=== PATIENT | female | born 2000 | race Caucasian/White ===

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

== ENCOUNTER 2020-04-24 04:35 | Inpatient (IN) ==
[2020-04-24 05:01] LABS: Hematocrit 28.2 % (37.0-47.0); Hemoglobin 8.2 gm/dL (12.5-16.0); Mean Cell Volume 73.4 fl (78-100); Mean Corpuscular Hemoglobin 21.4 pg (27-31); Mean Corpuscular Hgb Conc 29.1 g/dl (32-36); NRBC# 0.1 k/mm3 (0-1); Neutrophil # 9.9 K/mm3 (1.3-6.0); Neutrophil % 68.5 % (42-75.0); Platelet Count 140 K/mm3 (150-450); Red Blood Count 3.84 M/mm3 (4.2-5.4); Red Cell Distribution Width 16.2 % (11.5-14.0); White Blood Count 14.5 K/mm3 (4.0-10.5)
[2020-04-24] MEDS: RINGER'S SOLUTION,LACTATED 1,000 ML IV PRN ×2 (05:25→06:29)
[2020-04-24] MEDS ORDERED: ONDANSETRON HCL/PF 2 MG/ML VIAL ONE (06:47)
[2020-04-24] MEDS ORDERED: MIDAZOLAM HCL/PF 5 MG/ML VIAL ONE (06:47)
[2020-04-24] MEDS ORDERED: fentaNYL CITRATE/PF 50 MCG/ML AMPUL ONE (06:47)
[2020-04-24] MEDS ORDERED: ceFAZolin SODIUM 1 GM VIAL ONE (06:48)
[2020-04-24] MEDS ORDERED: BUPIVACAINE HCL 50 ML VIAL IJ ONE (06:48)
[2020-04-24] MEDS ORDERED: Oxytocin/Ringers Lactate 20 UNITS/1,000 ML BAG IV ONE (06:49)
[2020-04-24] MEDS ORDERED: HYDROmorphone HCL 2 MG/ML VIAL IV PRN (06:59)
[2020-04-24] MEDS ORDERED: ONDANSETRON HCL/PF 2 MG/ML VIAL IV PRN ×2 (06:59→09:41)
[2020-04-24] MEDS ORDERED: NALOXONE HCL 0.4 MG/ML VIAL IV PRN (06:59)
[2020-04-24] MEDS ORDERED: PROCHLORPERAZINE EDISYLATE 5 MG/ML VIAL IV PRN (06:59)
[2020-04-24] MEDS ORDERED: diphenhydrAMINE HCL 50 MG/ML VIAL IV PRN (06:59)
--- NOTE | 2020-04-24 07:02 | ANES ---
Anesthesia Pre Procedure Eval HOME MEDICATIONS prenat.vits,conner,iwn-kxrb-svwcl 1 tab PO DAILY 09/08/19 [Last Taken 04/23/20] aspirin 81 mg tablet,delayed release 81 mg PO DAILY 01/05/20 [Last Taken 04/23/20] docusate sodium 100 mg capsule 100 mg PO DAILY PRN 01/05/20 [Last Taken 04/23/20] ferrous sulfate 325 mg (65 mg iron) tablet 325 mg PO DAILY 04/20/20 [Last Taken 04/23/20] Allergies/Adverse Reactions: Allergies Allergy/AdvReac Type Severity Reaction Status Date / Time No Known Allergies Allergy Verified 04/20/20 09:07 - Planned Procedure Planned Procedure: Primary Section Medication List Reviewed:: Yes Allergies Verified: Yes Medical History (Last Updated 04/24/20 @ 07:01 by Nixon Alves CRNA) Major depression (Chronic) Encounter for Nexplanon removal (Acute) Vaginal delivery (Acute) Obstructive uropathy (Acute) Metformin overdose (Acute) Intentional drug overdose (Acute) Abdominal pain (Acute) Constipation (Acute) Sore throat (Acute) secondary to sinusitis salt water gargle , Tylenol prn pain Sinusitis (Acute) salt water nasal spray Irritable bowel syndrome (IBS) (Suspected) history consistent with IBS, increased fiber, keep diary of symptoms ,follow up with usual doctor Exposure to toxic gas (Acute) Thrombocytopenia affecting Anxiety Borderline personality disorder Depression Anemia Suicidal ideations Suicide attempt by drug ingestion Surgical History (Last Reviewed 04/24/20 @ 07:00 by Nixon Alves CRNA) No history of previous surgery Family History (Last Reviewed 04/24/20 @ 07:00 by Nixon Alves CRNA) Brother Anxiety Depression Oppositional defiant disorder of childhood or adolescence Nonverbal learning disorder Mother Diabetes Fibromyalgia Father Alive and well - Airway/Neck/Teeth Within Normal Limits:: Yes Teeth Condition: intact Mallampatti Score: 2 Thyromental (T-M) distance: > 6 cm Mandibulo Hyoid distance: > 3 cm - Respiratory Respiratory Physical: lungs clear - Cardiovascular Tolerate Activity: Good Heart Sounds: S1 & S2, Regular - Gastrointestinal NPO since: mn - Anesthesia Assessment and Plan ASA Class: PS, II Anesthesia Type Plan: Block - Bilateral TAP blocks for postop analgesia, Spinal
--- NOTE | 2020-04-24 08:45 | OR ---
Operative Report - Dictated Report Narrative: Date of delivery: 04/24/2020 Time of delivery: Twin A 075 Twin B 075 Gender: Twin A female Twin B female weight Twin A: 2134 grams weight Twin B: 2558 grams APGARS Twin A: 11/23 APGARS Twin B: 11/23 Procedure: primary delivery Description of the procedure: The patient was taken to the operating room where spinal anesthesia was induced. She was then prepped and draped in the supine position in the standard surgical fashion. A Pfannestiel skin incision was made. The incision was carried through the subcutaneous tissue. The fascia was incised in the midline. The fascial incision was extended sharply. The fascia was tented up with Jeramy clamps and dissected off the underlying rectus muscles. The rectus muscles were in the midline. The peritoneum was entered sharply. An X-large Clem was placed in the abdomen. The lower uterine segment was incised with scalpel. The membranes were ruptured and meconium-stained amniotic fluid was identified. Baby B was delivered first in breech presentation with the usual breech manuevers and without any difficulty. The cord was clamped and cut and the infant was handed off to the attending pediatric staff. Following this the placenta for baby B was delivered as it was presenting in front of baby A. Baby A turned cephalic. The membranes were ruptured and clear fluid was noted. Baby A was delivered without difficulty. The placenta for baby A was delivered. Cord blood was collected for both babies. The uterus was cleared of all clots and debris. The uterine incision was closed with 2 layers of 0-vicryl. Additional hemostasis was obtained with 2 figure of eight sutures. Hemostasis was adequate. The Clem retractor was removed from the abdomen. The subfascial tissues and rectus muscles were inspected for hemostasis and found to be hemostatic. The fascia was closed with 1-0 vicryl. The subcutaneous tissues was irrigated and made hemostatic. The subcutaneous tissue's space was closed with 2-0 vicryl. The skin was closed with 3-0 monocryl. [place] piña was placed over the incision. The incision was covered with band aids. All sponge, lap, and needle counts were correct. The patient tolerated the procedure well. She was transferred to the recovery ro in stable condition. EBL: 700 mL Complications: none Specimens: cord blood, placentas History for MU Definition: * The number of deliveries resulting in a live the patient experienced prior to current hospitalization * The previous delivery of live twins or any live multiple gestation is considered one live event. *If primagravida or nulliparous is documented select zero for the number of previous live births. Live Events: 1
--- NOTE | 2020-04-24 09:01 | ANES ---
Post Anesthesia Discharge - Transfer of Care Transfer of Care handoff given to nurse: Yes - Discharge from PACU Discharge from PACU when meets criteria: Yes - Discharge to ASU Discharge to ASU-no complications/pt stable: Yes
--- NOTE | 2020-04-24 09:02 | ANES ---
Anesthesia Procedure Note Procedure Note: ANESTHESIA PROCEDURE NOTE Date of Procedure: 04/24/2020. Time of procedure: 0845. Performed by: Nixon Alves CRNA Sausage Smoker: None. Preprocedure diagnosis: Primary . Post procedure diagnosis: Same. Procedure: Bilateral ultrasound-guided transversus abdominis plane block for postop analgesia. Indications: The patient is a 20-year-old female post section. Findings: See below. Details of the procedure: ChloraPrep was used on the patient's abdomen and the procedure was performed under sterile technique. The right abdominal fascial layer between the internal oblique muscle and the transversus abdominis muscles was identified under ultrasound guidance. A 21-gauge 4 inch block needle was inserted under ultrasound guidance to the target fascial plane. 15 mL's of 0.5% bupivacaine plus epinephrine 1:200,000 was injected after negative aspiration for blood. The needle was removed intact and the procedure was then repeated at the left side. No complications were noted. The images were retained in the hospital medical database. EBL: Minimal. Fluids: N/A. Specimen: N/A. Post procedure condition: The patient tolerated the procedure well. No complications were noted. Thank you for this consultation. Nixon Alves CRNA
--- NOTE | 2020-04-24 09:26 | ANES ---
Post Anesthesia Assessment - Vital Signs Vitals: Last Vital Signs Temp 36.3 C 04/24/20 09:10 Pulse 68 04/24/20 09:10 Resp 13 04/24/20 09:10 BP 145/79 H 04/24/20 09:10 Pulse Ox 100 04/24/20 09:10 Airway Patency: Normal - Mental Status Level Of Consciousness: Awake - Pain Level Pain Score: 0 - N/V Assessment Nausea/Vomiting Presence: None Dehydration:: No
[2020-04-24] MEDS ORDERED: SENNOSIDES 8.6 MG TABLET PO PRN (09:41)
[2020-04-24] MEDS ORDERED: BISACODYL 10 MG SUPP.RECT RC PRN (09:41)
[2020-04-24] MEDS ORDERED: SIMETHICONE 80 MG TAB.CHEW PO PRN (09:41)
[2020-04-24] MEDS ORDERED: diphenhydrAMINE HCL 25 MG CAPSULE PO PRN (09:41)
[2020-04-24] MEDS: KETOROLAC TROMETHAMINE 30 MG/ML VIAL IV PRN ×2 (09:55→16:20)
[2020-04-24] MEDS: HYDROcodone/ACETAMINOPHEN 1 EACH TABLET PO PRN ×5 (09:55→23:48)
[2020-04-24 12:57] LABS: Mean Cell Volume 71.6 fl (78-100); Mean Corpuscular Hemoglobin 21.3 pg (27-31); Mean Corpuscular Hgb Conc 29.8 g/dl (32-36); NRBC# 0.1 k/mm3 (0-1); Neutrophil # 9.5 K/mm3 (1.3-6.0); Neutrophil % 69.5 % (42-75.0); Platelet Count 127 K/mm3 (150-450); Red Blood Count 3.28 M/mm3 (4.2-5.4); White Blood Count 13.7 K/mm3 (4.0-10.5)
[2020-04-24 13:00] LABS: Hematocrit 23.5 % (37.0-47.0)
[2020-04-24 13:08] LABS: Anion Gap 14.3 mmol/L (6.8-13.8); BUN/Creatinine Ratio 16.9 (9.0-21.6); Bilirubin, Total 0.5 mg/dL (0.0-1.1); Ca. Corrected For Albumin 9.7 mg/dL (8.4-10.2); Calcium * 8.4 mg/dL (7.9-10.9); Carbon Dioxide 21.7 mmol/L (24-32.6); Total Protein 5.2 gm/dL (6.2-8.2)
[2020-04-24 13:36] LABS: Random Urine Total Protein 15.7 mg/dL (0-12)
[2020-04-24] MEDS: DOCUSATE SODIUM 100 MG CAPSULE PO SCH (20:22)
[2020-04-25] MEDS ORDERED: ceFAZolin SODIUM 1 GM VIAL IV PRN (06:00)
[2020-04-25 07:20] LABS: Mean Cell Volume 72.3 fl (78-100); Mean Corpuscular Hemoglobin 21.3 pg (27-31); Mean Corpuscular Hgb Conc 29.4 g/dl (32-36); Mean Platelet Volume 12.3 fl (8-12.5); NRBC# 0.1 k/mm3 (0-1); Neutrophil # 7.7 K/mm3 (1.3-6.0); Neutrophil % 65.9 % (42-75.0); Platelet Count 136 K/mm3 (150-450); Red Blood Count 3.29 M/mm3 (4.2-5.4); Red Cell Distribution Width 15.9 % (11.5-14.0); White Blood Count 11.7 K/mm3 (4.0-10.5)
[2020-04-25] MEDS: HYDROcodone/ACETAMINOPHEN 1 EACH TABLET PO PRN ×5 (07:24→23:35)
[2020-04-25] MEDS: IBUPROFEN 800 MG TABLET PO PRN ×3 (07:24→23:35)
[2020-04-25 07:25] LABS: Hematocrit 23.8 % (37.0-47.0)
[2020-04-25] MEDS: DOCUSATE SODIUM 100 MG CAPSULE PO SCH ×3 (07:25→19:59)
[2020-04-25] MEDS ORDERED: IRON SUCROSE COMPLEX 500 MG in NORMAL SALINE 250 ML IV ONE (08:14)
--- NOTE | 2020-04-25 08:18 | PN ---
Subjective - Date and Time Seen Date: 04/25/20 Time: 08:16 Subjective Narrative: Patient without complaints. Not lightheaded or dizzy. Objective Objective Narrative: See vital signs - Review of Systems Generalized/Overall Review: Reports: No Symptoms Reported Misc: All systems neg except as marked - Vitals Vitals: Last Vital Signs Temp 37.1 C 04/25/20 07:36 Pulse 81 04/25/20 07:36 Resp 18 04/25/20 07:36 BP 142/87 H 04/25/20 07:36 Pulse Ox 98 04/25/20 07:36 - Abnormal Lab Findings Abnormal Lab Findings: Abnormal Lab Results 04/24/20 04/24/20 04/24/20 Range/Units 12:40 12:48 12:48 WBC 13.7 H (4.0-10.5) K/mm3 RBC 3.28 L (4.2-5.4) M/mm3 Hgb 7.0 L* (12.5-16.0) gm/dL Hct 23.5 L* (37.0-47.0) % MCV 71.6 L (78-100) fl MCH 21.3 L (27-31) pg MCHC 29.8 L (32-36) g/dl RDW 16.0 H (11.5-14.0) % Plt Count 127 L (150-450) K/mm3 Immature Gran % (Auto) 0.90 H (0.001-0.429) % Immature Gran # (Auto) 0.12 H (0.000-0.0310) K/mm3 Neutrophils # 9.5 H (1.3-6.0) K/mm3 Chloride 109 H (97-106) mmol/L Carbon Dioxide 21.7 L (24-32.6) mmol/L Anion Gap 14.3 H (6.8-13.8) mmol/L ALT 17 L (19-67) U/L Total Protein 5.2 L (6.2-8.2) gm/dL Albumin 2.0 L (3.4-5.0) gm/dl Ur Random Creatinine 47.9 L (60-200) mg/dL U Random Total Protein 15.7 H (0-12) mg/dL U [place] Prot/Creat Ratio 328 H (0-199) mg/gm 04/25/20 Range/Units 07:15 WBC 11.7 H (4.0-10.5) K/mm3 RBC 3.29 L (4.2-5.4) M/mm3 Hgb 7.0 L* (12.5-16.0) gm/dL Hct 23.8 L* (37.0-47.0) % MCV 72.3 L (78-100) fl MCH 21.3 L (27-31) pg MCHC 29.4 L (32-36) g/dl RDW 15.9 H (11.5-14.0) % Plt Count 136 L (150-450) K/mm3 Immature Gran % (Auto) 0.90 H (0.001-0.429) % Immature Gran # (Auto) 0.10 H (0.000-0.0310) K/mm3 Neutrophils # 7.7 H (1.3-6.0) K/mm3 Chloride (97-106) mmol/L Carbon Dioxide (24-32.6) mmol/L Anion Gap (6.8-13.8) mmol/L ALT (19-67) U/L Total Protein (6.2-8.2) gm/dL Albumin (3.4-5.0) gm/dl Ur Random Creatinine (60-200) mg/dL U Random Total Protein (0-12) mg/dL U [place] Prot/Creat Ratio (0-199) mg/gm - Exam Constitutional: Present: Alert, Oriented x3, Cooperative, No distress Abdomen: Present: soft, nontender, nondistended - dressing c/d/i Extremity: Present: non-tender, no calf tenderness Skin Exam: Present: normal color, warm/dry, no cyanosis Neurologic: Present: alert, normal mood/affect, oriented x 3 Appearance: Present: appropriate appearance, appropriate insight, neat, no memory impairment Eye contact: Present: cooperative, good eye contact, normal speech Thoughts: Present: normal thought pattern Cauti Physician Documentation - Urinary Catheter Management Urethral (Ch[place]al) Urethral Indwelling: No Date of Insertion: 04/24/20 Time of Insertion: 07:30 Date of Removal: 04/24/20 Time of Removal: 20:20 Assessment/Plan Plan Narrative: POD 1 s/p primary delivery Doing well Acute blood loss anemia: venofer infusion order. Repeat in 7 days Discharge POD 3
[2020-04-25] MEDS: PRENATAL VITS96/IRON FUM/FOLIC 1 TAB TABLET PO SCH (08:35)
[2020-04-26] MEDS: HYDROcodone/ACETAMINOPHEN 1 EACH TABLET PO PRN ×3 (04:22→15:57)
--- NOTE | 2020-04-26 07:37 | PN ---
Subjective - Date and Time Seen Date: 04/26/20 Time: 07:35 Subjective Narrative: Patient without complaints. Not lightheaded or dizzy. Objective Objective Narrative: See vital signs - Review of Systems Generalized/Overall Review: Reports: No Symptoms Reported Misc: All systems neg except as marked - Vitals Vitals: Last Vital Signs Temp 36.7 C 04/26/20 00:58 Pulse 93 04/26/20 00:58 Resp 18 04/26/20 00:58 BP 128/69 04/26/20 00:58 Pulse Ox 97 04/26/20 00:58 - Exam Constitutional: Present: Alert, Oriented x3, Cooperative, No distress ENT Exam: Present: hearing grossly normal Neck: Present: normal inspection Abdomen: Present: soft, nontender, nondistended - incision c/d/i Extremity: Present: non-tender, no calf tenderness Skin Exam: Present: normal color, warm/dry, no cyanosis Neurologic: Present: alert, normal mood/affect, oriented x 3 Appearance: Present: appropriate appearance, appropriate insight, neat, no memory impairment Eye contact: Present: cooperative, good eye contact, normal speech Thoughts: Present: normal thought pattern Cauti Physician Documentation - Urinary Catheter Management Urethral ([place]al) Urethral Indwelling: No Date of Insertion: 04/24/20 Time of Insertion: 07:30 Date of Removal: 04/24/20 Time of Removal: 20:20 Assessment/Plan Plan Narrative: POD 2 s/p primary delivery Doing well Discharge tomorrow
[2020-04-26] MEDS: PRENATAL VITS96/IRON FUM/FOLIC 1 TAB TABLET PO SCH ×2 (07:50→10:38)
[2020-04-26] MEDS: DOCUSATE SODIUM 100 MG CAPSULE PO SCH ×3 (07:50→20:09)
[2020-04-26] MEDS: IBUPROFEN 800 MG TABLET PO PRN ×2 (07:51→15:56)
[2020-04-27] MEDS: DOCUSATE SODIUM 100 MG CAPSULE PO SCH ×2 (07:38→08:41)
[2020-04-27] MEDS: HYDROcodone/ACETAMINOPHEN 1 EACH TABLET PO PRN ×2 (07:38→15:10)
[2020-04-27] MEDS: PRENATAL VITS96/IRON FUM/FOLIC 1 TAB TABLET PO SCH ×2 (07:39→08:41)
[2020-04-27] MEDS: IBUPROFEN 800 MG TABLET PO PRN ×2 (07:39→15:10)
--- NOTE | 2020-04-27 07:55 | PN ---
Subjective - Date and Time Seen Date: 04/27/20 Time: 07:54 Subjective Narrative: Patient without complaints. Not lightheaded or dizzy. Objective Objective Narrative: See vital signs - Review of Systems Generalized/Overall Review: Reports: No Symptoms Reported Misc: All systems neg except as marked - Vitals Vitals: Last Vital Signs Temp 36.9 C 04/27/20 01:03 Pulse 99 04/27/20 01:03 Resp 18 04/27/20 01:03 BP 144/76 H 04/27/20 01:03 Pulse Ox 96 04/27/20 01:03 - Exam Constitutional: Present: Alert, Oriented x3, Cooperative, No distress ENT Exam: Present: hearing grossly normal Abdomen: Present: soft, nontender, nondistended - incision c/d/i Extremity: Present: non-tender, no calf tenderness Skin Exam: Present: normal color, warm/dry, no cyanosis Neurologic: Present: alert, normal mood/affect, oriented x 3 Appearance: Present: appropriate appearance, appropriate insight, neat, no memory impairment Eye contact: Present: cooperative, good eye contact, normal speech Thoughts: Present: normal thought pattern, no apparent hallucination Cauti Physician Documentation - Urinary Catheter Management Urethral (Chahal) Urethral Indwelling: No Date of Insertion: 04/24/20 Time of Insertion: 07:30 Date of Removal: 04/24/20 Time of Removal: 20:20 Assessment/Plan Plan Narrative: POD 3 s/p primary delivery Doing well Discharge today
--- NOTE | 2020-04-27 07:57 | DS ---
OB Discharge Summary Delivery Date: 04/24/20 Delivery Time: 07:51 :: 3 Para:: 3 Gestational weeks:: 37 Gestational days:: 1 Intrapartum Procedures: Primary Section, Delivery-Low Transverse, Anesthesia - Spinal Procedures: Other - iron infusion /OP Complications: Preeclampsia/GHTN Discharge Diagnosis: Term -Delivered, Preeclampsia mild/severe - Discharge Information Date of Discharge: 04/27/20 Hospital Course: Pt admitted for delivery. delivery uncomplicated. Received iron infusion due to acute blood loss anemia with low hemoglobin prior to . Discharge Location: Home Disposition: Home self-care Activity on Discharge:: Activity as tolerated, Pelvic Rest Discharge Diet: General/regular food Additional Patient Instructions (free text): July your follow up appointment is scheduled for Please come to the [place] to get your 2nd Venofer infusion on Katie and Giselle's follow up appointments are scheduled for Katie's blood type is O+ Giselle's blood type is A+ Katie's discharge weight is 4 lbs 5.2 oz Giselle's discharge weight is 5 lbs 4.2 oz Continue to bottle feed them at least every 2-[address] them on their back to sleep in their own bassinet or crib. No loose blankets, bumper pads, stuffed animals or pillows. Thank you for choosing [facility] for you special twin delivery! Congratulations! If you have any questions or concerns, please don't hesitate to call us at [phone]. [facility] [phone] Prescriptions (Any new or edited meds): HYDROcodone/ACETAMINOPHEN [[place] 5-325] 1 ea PO Q6H PRN 6 Days #14 tab PRN Reason: Moderate Pain (Pain Scale 4-6) Transmission Status: Received by [facility] #[id number] Complete Home Medications List: Complete Home Medication List: prenat.vits,conner,cyi-uhfe-frluc 1 tab PO DAILY 09/08/19 docusate sodium 100 mg capsule 100 mg PO DAILY PRN 01/05/20 HYDROcodone/ACETAMINOPHEN [[place] 5-325] 1 ea PO Q6H PRN 6 Days #14 tab 04/25/20 Ibuprofen [Motrin] 800 mg PO Q6H PRN tab 04/25/20 - Plan Discharge to:: Home Comment:: Routine Discharge Instructions Follow up in office in:: Other - 1 week for BP check, 4 weeks for PP visit, 1 week for iron infusion - Information Weight (Grams): 2,558 Infant Sex: Female Score 1 min: 9 Score 5 min: 9 Complications: Meconium Other Complications: Twin B born 1st, Breech, respiratory distress resolved, thin mec fluid. Twin A born at 0752, 2134 grams, Apgars 9/9. steriods were given 2/4 and 2/5
[2020-04-27 08:28] VITALS: BP 150/90
== END 2020-04-27 15:45 | disposition home or self-care (01) | DRG 787 ==
LOC: OB 04:35
PROVIDERS: ADMIT Obstetrics & Gynecology; ATTEND Obstetrics & Gynecology
DX: O90.81 Anemia of the puerperium; Z37.2 Twins, both liveborn; O14.05 Mild to moderate pre-eclampsia, complicating the puerperium; O30.043 Twin pregnancy, dichorionic/diamniotic, third trimester; O31.8X31 Other complications specific to multiple gestation, third trimester, fetus 1; D62 Acute posthemorrhagic anemia; O32.1XX2 Maternal care for breech presentation, fetus 2; Z3A.37 37 weeks gestation of pregnancy